=== PATIENT | male | born 1940 | race Caucasian/White ===

== ENCOUNTER 2017-01-18 18:52 | Emergency (ER) | payer MEDICARE ==
--- NOTE | 2017-01-18 23:17 | Emergency Department Report ---
HPI - General Chief Complaint: Extremity Injury, Lower Time Seen by Provider: 01/18/17 23:00 - HPI HPI: 76-year-old male presents today complaining of left foot pain 2 days. Patient states there is an area over the sole of his left foot which has been hurting with weightbearing. Denies any pain at rest. Denies any injury or trauma. Denies history of similar symptoms. Patient states that it's worse when he is wearing shoes. Denies numbness, weakness, paresthesias. Denies fever, chills, nausea, vomiting, chest pain, shortness of breath, abdominal pain. ED Past Medical Hx - Past Medical History Previous Medical History?: Yes Hx Diabetes: Yes Hx of Cancer: Yes (right groin) - Surgical History Past Surgical History?: No - Medications Home Medications: Home Medications Medication Instructions Recorded Confirmed Last Taken Type Naproxen [Naprosyn] 500 mg PO BID #30 tablet 01/18/17 Unknown Rx ED Review of Systems ROS: Stated complaint: LT FOOT PAIN Other details as noted in HPI Constitutional: denies: chills, fever, malaise Eyes: denies: eye pain ENT: denies: ear pain, throat pain, congestion Respiratory: denies: cough, shortness of breath, wheezing Cardiovascular: denies: chest pain, palpitations Endocrine: no symptoms reported Gastrointestinal: denies: abdominal pain, nausea, vomiting Musculoskeletal: arthralgia Neurological: denies: headache, weakness, numbness, paresthesias Physical Exam - Physical Exam Vital Signs: Vital Signs 01/18/17 19:18 Temperature 98.8 F Pulse Rate 88 Respiratory 18 Rate Blood Pressure 154/92 O2 Sat by Pulse 98 Oximetry Physical Exam: GENERAL: The patient is well-developed and well-nourished. Patient is in NAD. HEAD: Normocephalic. Atraumatic. CHEST/LUNGS: Clear to auscultation throughout. HEART/CARDIOVASCULAR: Regular rate and rhythm. No murmurs, rubs or gallops. ABDOMEN: Abdomen is soft, nontender. Bowel sounds normoactive. No guarding or rebound tenderness. LEFT FOOT: Full ankle and toe ROM. Point tenderness to palpation over medial aspect of plantar aspect of midfoot. No echymosis, lesion, rash noted. Normal sensation. Peripheral pulses intact. Capillary refill less than 2 seconds. NEURO: Alert and oriented x 3. Normal gait. ED Course Vital Signs 01/18/17 19:18 Temperature 98.8 F Pulse Rate 88 Respiratory 18 Rate Blood Pressure 154/92 O2 Sat by Pulse 98 Oximetry ED Medical Decision Making - Lab Data Vital Signs 01/18/17 19:18 Temperature 98.8 F Pulse Rate 88 Respiratory 18 Rate Blood Pressure 154/92 O2 Sat by Pulse 98 Oximetry - Medical Decision Making 76-year-old male presents today with left foot pain 2 days. Denies injury or trauma. A referral for ankle and acoustic intelligence specialist has been provided. Patient is in no acute distress at this time. He will be discharged home and is encouraged to follow up with a primary care provider. He will be sent home on Naprosyn and is encouraged to return to the emergency room for any worsening symptoms. Critical care attestation.: If time is entered above; I have spent that time in minutes in the direct care of this critically ill patient, excluding procedure time. ED Disposition Clinical Impression: Foot pain Qualifiers: Laterality: left Qualified Code(s): M79.672 - Pain in left foot Disposition: DISCHARGED TO HOME OR SELFCARE Is pt being admited?: No Does the pt Need Aspirin: No Condition: Stable Instructions: Foot Sprain (ED) Additional Instructions: Follow-up with primary care provider. Return to the emergency department if symptoms worsen. Prescriptions: Naproxen [Naprosyn] 500 mg PO BID #30 tablet Referrals: MIGUEL MARQUEZ MD [Primary Care Provider] - 3-5 Days CAROLE NAGY MD [Staff Physician] - 3-5 Days Forms: Work/School Release Form(ED) Time of Disposition: 23:15
[2017-01-19 00:04] VITALS: BP 145/80
== END 2017-01-19 00:45 | disposition home or self-care (01) ==
LOC: ED 18:52
DX: M79.672 Pain in left foot (principal); E11.9 Type 2 diabetes mellitus without complications
CPT/HCPCS: 99281